=== PATIENT | female | born 1980 | race Two or more races ===

== ENCOUNTER → 2018-01-10 | Day surgery (SDC) | payer OTHER ==
[~2018-01-10] MED LIST: METHYLPREDNISOLONE ACETATE INJ 40 MG/1 ML ML ONE
--- NOTE | 2018-01-10 14:48 | RADIOLOGY REPORT (SQ) ---
EXAM DESCRIPTION: INJECT/ASPIR HIP/SHLDR/KNEE; FLUORO/NEEDLE PLACEMENT COMPLETED DATE/TIME: 01/10/2018 2:23 pm REASON FOR STUDY: PAIN IN LEFT HIP M25.552 PAIN IN LEFT HIP COMPARISON: None. FLUOROSCOPY TIME: 16 seconds 1 digital radiographic image saved to PACS. LIMITATIONS: None. PROCEDURE: SITE OF INJECTION: Left hip LOCALIZING CONTRAST TYPE AND DOSE: 1 mL of Isovue-300 was injected to confirm intra-articular needle placement MEDICATION TYPE AND DOSE: 80 mg of Depo-Medrol, 5 mL of 0.5% bupivacaine Using local anesthesia and sterile technique with fluoroscopic guidance, the needle was advanced into the joint. Iodinated contrast was injected to verify intraarticular placement. This was followed by therapeutic injection of the indicated medications. The needle was removed. There were no immediat e complications. Preprocedure pain level: 6/10. Postprocedure pain level: 0/10. IMPRESSION: THERAPEUTIC INJECTION OF THE LEFT HIP JOINT ABOVE. COMMENT: Patient medication list reviewed: Yes- Quality ID# [id number]:Eligible professional attests to doc umenting in the medical record they obtained, updated, or reviewed the patient's current medications. . Quality ID 145: Final reports for procedures using fluoroscopy that document radiation exposure sanna quan, or exposure time and number of fluorographic images (if radiation exposure indices are not avail able) TECHNICAL DOCUMENTATION: JOB ID: [id number] [employer]- All Rights Reserved Reading location - IP/workstation name: [email or web address]
--- NOTE | 2018-01-10 14:48 | RADIOLOGY REPORT (SQ) ---
EXAM DESCRIPTION: INJECT/ASPIR HIP/SHLDR/KNEE; FLUORO/NEEDLE PLACEMENT COMPLETED DATE/TIME: 01/10/2018 2:23 pm REASON FOR STUDY: PAIN IN LEFT HIP M25.552 PAIN IN LEFT HIP COMPARISON: None. FLUOROSCOPY TIME: 16 seconds 1 digital radiographic image saved to PACS. LIMITATIONS: None. PROCEDURE: SITE OF INJECTION: Left hip LOCALIZING CONTRAST TYPE AND DOSE: 1 mL of Isovue-300 was injected to confirm intra-articular needle placement MEDICATION TYPE AND DOSE: 80 mg of Depo-Medrol, 5 mL of 0.5% bupivacaine Using local anesthesia and sterile technique with fluoroscopic guidance, the needle was advanced into the joint. Iodinated contrast was injected to verify intraarticular placement. This was followed by therapeutic injection of the indicated medications. The needle was removed. There were no immediat e complications. Preprocedure pain level: 6/10. Postprocedure pain level: 0/10. IMPRESSION: THERAPEUTIC INJECTION OF THE LEFT HIP JOINT ABOVE. COMMENT: Patient medication list reviewed: Yes- Quality ID# [id number]:Eligible professional attests to doc umenting in the medical record they obtained, updated, or reviewed the patient's current medications. . Quality ID 145: Final reports for procedures using fluoroscopy that document radiation exposure sanna quan, or exposure time and number of fluorographic images (if radiation exposure indices are not avail able) TECHNICAL DOCUMENTATION: JOB ID: [id number] [employer]- All Rights Reserved Reading location - IP/workstation name: [email or web address]
== END ==
LOC: RAD 13:47
PROVIDERS: ATTEND Orthopaedic Surgery Sports Medicine
DX: M25.552 Pain in left hip (principal)
CPT/HCPCS: 20610; 77002; J1020